=== PATIENT | female | born 2005 | race Caucasian/White ===

== ENCOUNTER → 2024-04-20 10:28 | Outpatient (REF) | payer BC, SELFPAY | LOC: HWRAD 10:28 | PROVIDERS: ATTENDING PHYSICIAN Obstetrics & Gynecology; FAMILY PHYSICIAN Family Medicine | DX: R10.2 Pelvic and perineal pain (principal) | CPT/HCPCS: 76830; 76856 ==

== ENCOUNTER 2024-06-07 17:16 | Emergency (ER) | payer BC, SELFPAY ==
[2024-06-07 17:19] VITALS: BP 130/82
[2024-06-07] MEDS: AUGMENTIN 875 MG/125 MG 1 TABLET PO (20:21)
--- NOTE | 2024-06-07 20:22 | ED.GENMED ---
History of Present Illness
General
Chief Complaint: Nasal Problem
Source: patient
Exam Limitations: none
Time Seen by Provider: 06/07/24 19:58
Nursing documentation reviewed up to this point in time: agreed with
History of Present Illness
History of Present Illness:
19-year-old female presents emergency room due to getting bitten on the nose by a dog. This is her dog but she is fostering, its shots are up-to-date. She saw urgent care, and had her tetanus updated and was given a prescription for Augmentin.
She was sent in due to concerns for a hematoma.
Past History
Past History
ED Past Medical History: Psychiatric (Anxiety)
Social History
Tobacco: Non-smoker
Alcohol: None
Drug: None
Personal: Single
Living: with family
Review of Systems
Review of Systems
Allergies reviewed?: Yes
All Other Systems: Not applicable
Constitutional: Reports no symptoms
EENT: Reports other (Nasal swelling)
Respiratory: Reports no symptoms
Cardiac: Reports no symptoms
ABD/GI: Reports no symptoms
: Reports no symptoms
Musculoskeletal: Reports no symptoms
Skin: Reports no symptoms
Neurological: Reports no symptoms
Endocrine: Reports no symptoms
Hematologic/Lymphatic: Reports no symptoms
Psychiatric: Reports no symptoms
Phy Exam
Physical Exam
Physical Exam:
Physical Exam
General: no apparent distress, not acutely ill
Neck: supple. no meningeal signs. normal posterior pharynx
Heart: equal radial pulses.
HEENT: Pupils equal round reactive to light, EOMI, mild nasal swelling at tip of nose, questionable swelling of the nasal septum
Lungs: no acute respiratory distress.
Abdomen: Nondistended
Neuro: alert and oriented. no focal neurological deficits
Skin: no rash
Psychiatric: well kept. interactive and cooperative
Extremities: no edema. no calf tenderness. negative homans. good distal pulses
Course
Orders/Labs/Results
Orders:
Orders
06/07/24 20:10
Amoxicillin 875 mg/Clav 125 mg [Augmentin 875 mg/125 mg] 1 tablet PO NOW STA
06/07/24 20:21
Bacitracin Zinc [Bacitracin Ointment] See Dose Instructions TOPICAL ONCE STA
Vital Signs
Initial and Last Documented VS:
Initial Vital Signs
Temp Pulse Resp BP Pulse Ox
98.5 F 82 18 130/82 100
06/07/24 17:19 06/07/24 17:19 06/07/24 17:19 06/07/24 17:19 06/07/24 17:19
Last Documented Vital Signs
Temp Pulse Resp BP Pulse Ox
98.5 F 82 18 130/82 100
06/07/24 17:19 06/07/24 17:19 06/07/24 17:19 06/07/24 17:19 06/07/24 17:19
MDM/Problems Addressed
Differential Diagnosis Includes:
Septal hematoma, epistaxis
MDM/Problems Addressed:
19-year-old female with dog bite to nose, concerns for septal hematoma, no significant hematoma seen. Discussed with Dr. Powers, who will see patient in office tomorrow.
*Pulse Oximetry
Patient hypoxic: no
*Critical Care Note
Total Time (30-74mins, 75-104mins- exclusive of procedures): Not Applicable
Patient Management
Discussion with other providers: [facility] (ENT)
Escalation/DeEscalation of care consider admission/obs:
Admission considered, but not indicated
ED Attending Note
-
Portions of this chart may have been created with voice recognition software.� Occasional wrong word or��sound alike� substitutions may have occurred due to the inherent limitations of voice recognition software.
Discharge Plan
Departure
Patient Disposition: Home (Routine Discharge)
Date of Disposition: 06/07/24
Time of Disposition: 20:28
Patient with high blood pressure during this ER visit?: Yes
Condition: Good
Discharge Problem:
Dog bite of nose
Referrals:
Wang Powers MD [Active] - 06/08/24 1:30 pm
Mary Sheets DO [Family Provider] -
Activity Restrictions/Additional Instructions:
Apply triple antibiotic ointment to nose. See ENT tomorrow at 1:30 PM.
Interventions
Interventions:
*Risk Screen - Suicide Last Done: 06/07/24 17:19
*General Assessment Last Done: 06/07/24 17:19
*Neglect/Abuse Screening Last Done: 06/07/24 17:19
*ED COVID-19 Vaccine History Last Done: 06/07/24 17:19
ED-EENT Assessment Last Done: 06/07/24 17:47
Discharge Date and Time
Print Language: ROMANSH
[2024-06-07] MEDS: BACITRACIN OINTMENT 1 APPLIC TOPICAL (20:31)
== END 2024-06-07 20:39 | disposition home or self-care (01) ==
LOC: EMR 17:16
PROVIDERS: EMERGENCY PHYSICIAN Emergency Medicine; FAMILY PHYSICIAN Family Medicine
DX: S00.37XA Other superficial bite of nose, initial encounter (principal); W54.0XXA Bitten by dog, initial encounter
CPT/HCPCS: 99283

== ENCOUNTER → 2025-02-28 15:40 | Outpatient (REF) | payer BC, SELFPAY | LOC: HWRCS 15:40 | PROVIDERS: ATTENDING PHYSICIAN Internal Medicine Cardiovascular Disease; FAMILY PHYSICIAN Physician Assistant Medical | DX: I34.0 Nonrheumatic mitral (valve) insufficiency (principal); R00.0 Tachycardia, unspecified; R42 Dizziness and giddiness | CPT/HCPCS: 93306 ==

== ENCOUNTER → 2025-06-12 11:03 | Outpatient (REF) | payer OTHER, SELFPAY | LOC: HWRAD 11:03 | PROVIDERS: ATTENDING PHYSICIAN Physician Assistant Medical; FAMILY PHYSICIAN Physician Assistant Medical | DX: R35.0 Frequency of micturition (principal); R39.15 Urgency of urination | CPT/HCPCS: 76770 ==